=== PATIENT | female | born 1945 | race Two or more races ===

== ENCOUNTER 2018-10-14 09:32 | Emergency (ER) | payer OTHER ==
[~2018-10-14] VITALS: Ht 152.4 cm; Wt 72.6 kg
[~2018-10-14 09:32] MED LIST: AMOX1TAB12 PO; CLONAZEPAM0.5 MG; DOLOGESIC CAPLE1 TAB PO; LIPITOR20 MG; LOPRESSOR25 MG PO; MEDROL DOSE PACK PO; ORPH100T PO; SYNTHROID100 MCG; SYNTHROID88 MCG PO; TOPROL XL50 M1; TUSSI PRES-B L120 M1 PO
[2018-10-14] MEDS ORDERED: PROTONIX40 M1 PO (09:43)
[2018-10-14] MEDS ORDERED: ZOCOR20 MG PO (09:43)
== END 2018-10-14 12:21 | disposition home or self-care (01) ==
LOC: ER 09:32
DX: J40 Bronchitis, not specified as acute or chronic (principal); J09.X2 Influenza due to identified novel influenza A virus with other respiratory manifestations

== ENCOUNTER 2018-12-19 10:36 | Emergency (ER) | payer OTHER ==
[~2018-12-19] VITALS: Ht 152.4 cm; Wt 74.8 kg
[~2018-12-19 10:36] MED LIST changes: +PROTONIX40 M1 PO; +ZOCOR20 MG PO
== END 2018-12-19 17:45 | disposition home or self-care (01) ==
LOC: ER 10:36
DX: K52.89 Other specified noninfective gastroenteritis and colitis (principal)

== ENCOUNTER 2019-08-06 09:39 | Emergency (ER) | payer OTHER ==
[~2019-08-06] VITALS: Ht 152.4 cm; Wt 72.6 kg
== END 2019-08-06 11:41 | disposition home or self-care (01) ==
LOC: ER 09:39
DX: M62.838 Other muscle spasm (principal); R07.89 Other chest pain; M54.2 Cervicalgia

== ENCOUNTER 2019-08-10 14:12 | Emergency (ER) | payer OTHER ==
[~2019-08-10] VITALS: Ht 152.4 cm; Wt 72.6 kg
== END 2019-08-10 17:47 | disposition home or self-care (01) ==
LOC: ER 14:12
DX: J40 Bronchitis, not specified as acute or chronic (principal); J06.9 Acute upper respiratory infection, unspecified

== ENCOUNTER 2020-10-16 16:12 | Emergency (ER) | payer OTHER ==
[~2020-10-16] VITALS: Ht 152.4 cm; Wt 74.8 kg
[2020-10-17] MEDS ORDERED: LOSARTAN POTASS50 MG PO (11:57)
[2020-10-17] MEDS ORDERED: HYDROCHLOROTH12.5 MG PO (11:57)
== END 2020-10-16 20:30 | disposition home or self-care (01) ==
LOC: ER 16:12
DX: K52.89 Other specified noninfective gastroenteritis and colitis (principal); A05.8 Other specified bacterial foodborne intoxications

== ENCOUNTER → 2020-10-17 | Emergency (ER) | payer OTHER ==
[~2020-10-17] VITALS: Ht 152.4 cm; Wt 72.6 kg
[~2020-10-17] MED LIST changes: +HYDROCHLOROTH12.5 MG PO; +LOSARTAN POTASS50 MG PO
== END | disposition left against medical advice (07) ==
LOC: ER 11:49
DX: N28.1 Cyst of kidney, acquired (principal); R42 Dizziness and giddiness; R14.0 Abdominal distension (gaseous)

== ENCOUNTER 2021-02-07 12:29 | Outpatient (CLI) | payer OTHER | END 2021-02-07 12:46 | disposition home or self-care (01) | LOC: SONOGRAMA 12:29 | PROVIDERS: ATTEND Urology | DX: R31.21 Asymptomatic microscopic hematuria (principal) ==

== ENCOUNTER → 2021-02-07 14:14 | Outpatient (CLI) | payer OTHER | END | disposition home or self-care (01) | LOC: LAB 14:14 | PROVIDERS: ATTEND Urology | DX: N30.00 Acute cystitis without hematuria (principal) ==

== ENCOUNTER 2022-05-21 16:36 | Emergency (ER) | payer OTHER ==
[~2022-05-21] VITALS: Ht 160 cm; Wt 77.1 kg
== END 2022-05-21 19:53 | disposition home or self-care (01) ==
LOC: ER 16:36
DX: R51.9 Headache, unspecified (principal); M25.511 Pain in right shoulder; E03.9 Hypothyroidism, unspecified; I10 Essential (primary) hypertension; Z88.8 Allergy status to other drugs, medicaments and biological substances

== ENCOUNTER 2022-10-23 15:59 | Emergency (ER) | payer OTHER ==
[~2022-10-23] VITALS: Ht 165.1 cm; Wt 63.5 kg
== END 2022-10-23 22:03 | disposition home or self-care (01) ==
LOC: ER 15:59
DX: R10.9 Unspecified abdominal pain (principal); I10 Essential (primary) hypertension; E03.9 Hypothyroidism, unspecified

== ENCOUNTER 2024-06-05 16:34 | Emergency (ER) | payer OTHER ==
[~2024-06-05] VITALS: Ht 165.1 cm; Wt 86.2 kg
[2024-06-05 16:51] VITALS: O2SAT 99
[2024-06-05] MEDS ORDERED: METOPROLOL SUCCINATE 50 MG TAB.SR.24H PO ONE (18:45)
[2024-06-05] MEDS ORDERED: FAMOTIDINE/PF 20 MG/2 ML VIAL IV ONE (18:45)
[2024-06-05] MEDS ORDERED: ONDANSETRON HCL 2 MG/ML VIAL IV ONE (18:45)
[2024-06-05] MEDS ORDERED: ACETAMINOPHEN 500 MG GEL..CAP PO ONE (18:45)
[2024-06-05 19:15] LABS: HEMATOCRIT 42.2 % (36.0-45.00); HEMOGLOBIN 14.3 g/dL (12.0-15.00); MEAN CELL VOLUME 90.8 fL (80.00-100.00); MEAN CORPUSCULAR HEMOGLOBIN 30.9 pg (27.00-32.0); PLATELET COUNT 295 K/uL (150-450); RED BLOOD COUNT 4.64 M/uL (4.00-6.00); RED CELL DISTRIBUTION WIDTH 13.6 % (11.5-14.5)
[2024-06-05 19:42] LABS: ALBUMIN 4.4 gm/dL (3.4-5.0); BILIRUBIN TOTAL 0.64 mg/dL (0.3-1.2); CALCIUM 9.7 mg/dL (8.5-10.1); CREATININE SERUM 0.74 mg/dL (0.55-1.02); GFR 76.3; GLOBULINA 3.7 G/DL (2.4-3.5); POTASSIUM 4.23 mEq/L (3.5-5.1); TOTAL PROTEIN 8.1 gm/dL (6.4-8.2)
[2024-06-05 20:15] LABS: PH,URINE 6.5 (5.0-8.0); URINE APPEARANCE Clear; URINE BILIRRUBIN Negative (NEGATIVE); URINE BLOOD Small; URINE COLOR Yellow; URINE GLUCOSE Negative (NEGATIVE); URINE KETONE Negative (NEGATIVE); URINE LEUKOCYTE Trace; URINE NITRATE Negative; URINE PROTEIN Negative (NEGATIVE); URINE UROBILINOGEN 0.2 E.U./dl
[2024-06-05 20:18] LABS: URINE BACTERIA 119.6 uL (0.0-1933); URINE EPITHELIAL CELLS 9.5 uL (0.0-38.8); URINE RBC 36.1 uL (0.0-20.8); URINE WBC 23.6 uL (0.0-23.2)
[2024-06-05 20:48] VITALS: BP 146/77
[2024-06-05] MEDS ORDERED: KETOROLAC TROMETHAMINE 30 MG VIAL IV ONE (21:15)
[2024-06-05] MEDS ORDERED: PEPCID AC20 MG PO (22:12)
== END 2024-06-05 22:29 ==
LOC: ER 16:36
PROVIDERS: Nurse Practitioner Family
DX: R10.13 Epigastric pain (principal); K29.00 Acute gastritis without bleeding; R10.9 Unspecified abdominal pain; I10 Essential (primary) hypertension; E03.8 Other specified hypothyroidism; Z88.8 Allergy status to other drugs, medicaments and biological substances
CPT/HCPCS: 36415; 74240; 93005; 96365; 99283; J1885; J2405; J3490

== ENCOUNTER 2025-01-12 17:29 | Emergency (ER) | payer OTHER ==
[~2025-01-12] VITALS: Ht 152.4 cm; Wt 68.0 kg
[~2025-01-12 17:29] MED LIST changes: +PEPCID AC20 MG PO
[2025-01-12] MEDS ORDERED: ACETAMINOPHEN 500 MG GEL..CAP PO ONE (18:58)
[2025-01-12 23:16] LABS: MEAN CORPUSCULAR HEMOGLOBIN 29.7 pg (25.6-32.2)
[2025-01-12 23:20] LABS: BASO % 0.6 % (0.1-1.2); EOS # 0.21 (0.04-0.54); EOS % 1.9 % (0.7-7.0); HEMATOCRIT 43.2 % (34.1-44.9); HEMOGLOBIN 15.4 g/dL (11.2-15.7); LYMPH # 5.61 (1.18-3.74); LYMPH % 50.9 % (19.3-53.1); MONO # 0.71 (0.24-0.82); MONO % 6.4 % (4.7-12.5); NEUT # 4.41 (1.56-6.13); PLATELET COUNT 357 K/uL (163-369); RED BLOOD COUNT 5.19 M/uL (3.93-5.22); RED CELL DISTRIBUTION WIDTH 12.1 % (11.6-14.4)
[2025-01-12 23:33] LABS: ALBUMIN 4.6 gm/dL (3.4-5.0); BILIRUBIN TOTAL 0.71 mg/dL (0.3-1.2); CALCIUM 9.6 mg/dL (8.5-10.1); CREATININE SERUM 0.65 mg/dL (0.55-1.02); GFR 88.38; GLOBULINA 3.9 G/DL (2.4-3.5); POTASSIUM 4.52 mEq/L (3.5-5.1); TOTAL PROTEIN 8.5 gm/dL (6.4-8.2)
== END 2025-01-13 00:14 | disposition home or self-care (01) ==
LOC: ER 17:29
PROVIDERS: Preventive Medicine Public Health & General Preventive Medicine
DX: R51.9 Headache, unspecified (principal); F41.9 Anxiety disorder, unspecified; I10 Essential (primary) hypertension; E03.8 Other specified hypothyroidism; Z88.8 Allergy status to other drugs, medicaments and biological substances

== ENCOUNTER 2025-05-16 20:35 | Emergency (ER) | payer OTHER ==
[~2025-05-16] VITALS: Ht 152.4 cm; Wt 72.6 kg
[2025-05-16] MEDS ORDERED: 0.9 % SODIUM CHLORIDE 500 ML IV SCH (21:45)
[2025-05-16] MEDS ORDERED: LABETALOL HCL 20MG/4ML SYRINGE IV ONE (22:00)
[2025-05-16] MEDS ORDERED: LABETALOL HCL 100 MG/20 ML ML ONE (22:05)
[2025-05-16] MEDS ORDERED: CLONIDINE HCL 0.1 MG TABLET PO ONE (22:12)
[2025-05-16 22:14] LABS: BASO % 0.5 % (0.1-1.2); EOS # 0.10 (0.04-0.54); EOS % 1.2 % (0.7-7.0); LYMPH # 2.97 (1.18-3.74); LYMPH % 36.0 % (19.3-53.1); MEAN PLATELET VOLUME 9.30 fl (9.4-12.4); MONO # 0.43 (0.24-0.82); MONO % 5.2 % (4.7-12.5); NEUT # 4.69 (1.56-6.13); NEUT % 57.0 % (34.0-71.1); RED CELL DISTRIBUTION WIDTH 12.4 % (11.6-14.4)
[2025-05-16] MEDS ORDERED: ACETAMINOPHEN 500 MG GEL..CAP PO ONE ×2 (22:17→22:30)
[2025-05-16 22:52] LABS: ALT/SGPT 30.0 U/L (12-78); AST/SGOT 25.0 U/L (15-37); BILIRUBIN TOTAL 0.4 mg/dL (0.3-1.2); BUN CREA RATIO 13.0 (7.0-25.0); CREATININE SERUM 0.69 mg/dL (0.55-1.02); GFR 82.5; GLOBULINA 3.9 G/DL (2.4-3.5); GLUCOSE FASTING 118.0 mg/dL (65-100); OSMOLALITY SERUM 275.0 MOSM/KG (275-295)
== END 2025-05-17 02:24 | disposition home or self-care (01) ==
LOC: ER 20:35
PROVIDERS: Preventive Medicine Public Health & General Preventive Medicine
DX: I10 Essential (primary) hypertension (principal); R00.2 Palpitations; Z88.8 Allergy status to other drugs, medicaments and biological substances; E03.9 Hypothyroidism, unspecified
CPT/HCPCS: 36415; 93005; 96365; 99282; J3490

== ENCOUNTER 2025-08-09 18:47 | Emergency (ER) | payer OTHER ==
[~2025-08-09] VITALS: Ht 152.4 cm; Wt 72.6 kg
[2025-08-09] MEDS ORDERED: FAMOTIDINE/PF 20 MG/2 ML VIAL IV STA (19:32)
[2025-08-09] MEDS ORDERED: 0.9 % SODIUM CHLORIDE 1,000 ML IV STA (19:32)
[2025-08-09] MEDS ORDERED: FAMOTIDINE/PF 20 MG/2 ML VIAL ONE (19:44)
[2025-08-09 20:17] LABS: BASO % 0.4 % (0.1-1.2); EOS # 0.17 (0.04-0.54); EOS % 1.2 % (0.7-7.0); LYMPH # 2.08 (1.18-3.74); LYMPH % 15.2 % (19.3-53.1); MEAN PLATELET VOLUME 9.60 fl (9.4-12.4); MONO # 0.91 (0.24-0.82); MONO % 6.6 % (4.7-12.5); NEUT # 10.46 (1.56-6.13); NEUT % 76.3 % (34.0-71.1); RED CELL DISTRIBUTION WIDTH 12.5 % (11.6-14.4)
[2025-08-09 20:23] LABS: ERYTHROCYTE SEDIMENTATION RATE 11 mm/hr (0-30)
[2025-08-09 20:36] LABS: INR 1.09
[2025-08-09 20:52] LABS: ALT/SGPT 33 U/L (12-78); AST/SGOT 29 U/L (15-37); BILIRUBIN TOTAL 0.28 mg/dL (0.3-1.2); BUN CREA RATIO 22 (7.0-25.0); CREATININE SERUM 0.76 mg/dL (0.55-1.02); GFR 73.79; GLOBULINA 3.6 G/DL (2.4-3.5); GLUCOSE FASTING 120 mg/dL (65-100); OSMOLALITY SERUM 284 MOSM/KG (275-295)
[2025-08-09 22:02] LABS: URINE APPEARANCE Clear; URINE BILIRRUBIN Negative (NEGATIVE); URINE BLOOD Moderate; URINE COLOR Yellow; URINE GLUCOSE Negative (NEGATIVE); URINE KETONE Negative (NEGATIVE); URINE LEUKOCYTE Negative; URINE NITRATE Negative; URINE PROTEIN Negative (NEGATIVE); URINE UROBILINOGEN 0.2 E.U./dl
[2025-08-09 22:06] LABS: COVID-19 AG NEGATIVE (NEGATIVE)
[2025-08-09 22:07] LABS: URINE BACTERIA 11.4 uL (0.0-1933); URINE EPITHELIAL CELLS 3.4 uL (0.0-38.8); URINE RBC 22.2 uL (0.0-20.8); URINE WBC 2.2 uL (0.0-23.2)
[2025-08-09 22:13] LABS: URINE CAST 0.14 uL (0.0-1.40)
[2025-08-10] MEDS ORDERED: PEPCID AC20 MG PO (02:28)
[2025-08-10] MEDS ORDERED: PROTONIX40 MG PO (02:28)
== END 2025-08-10 02:54 | disposition home or self-care (01) ==
LOC: ER 18:47
PROVIDERS: Physician Assistant Medical
DX: R55 Syncope and collapse (principal); K29.60 Other gastritis without bleeding; I10 Essential (primary) hypertension; R42 Dizziness and giddiness; R10.9 Unspecified abdominal pain; Z20.822 Contact with and (suspected) exposure to COVID-19; T14.90XA Injury, unspecified, initial encounter; W19.XXXA Unspecified fall, initial encounter; Y93.89 Activity, other specified; Y92.098 Other place in other non-institutional residence as the place of occurrence of the external cause; Y99.8 Other external cause status; Z88.8 Allergy status to other drugs, medicaments and biological substances
CPT/HCPCS: 36415; 70450; 71250; 72125; 74177; 93005; 96365; 99284; J3490; J7030; Q9965